=== PATIENT | female | born 1930 | race Caucasian/White ===

== ENCOUNTER 2018-12-18 08:18 | Observation (INO) | payer MEDICARE, MEDICAID ==
[2018-12-16 09:27] LABS: BASOPHILS % (AUTO) 0.4 % (0-1); HEMATOCRIT 41.1 % (35.0-45.0); HEMOGLOBIN 13.8 g/dl (12.0-16.0); LYMPHOCYTES # (AUTO) 1.2 X10'3 (1.1-4.8); LYMPHOCYTES % (AUTO) 23.9 % (21-51); MEAN CORPUSCULAR HEMOGLOBIN 31.8 PG (27.0-31.0); MEAN CORPUSCULAR HGB CONC 33.7 g/dL (33.0-36.5); MEAN CORPUSCULAR VOLUME 94.4 FL (78-98); MEAN PLATELET VOLUME 8.6 FL (7.4-10.4); MONOCYTES # (AUTO) 0.6 X10'3 (0-0.9); MONOCYTES % (AUTO) 11.4 % (2-12); NEUTROPHILS # (AUTO) 3.1 X10'3 (1.8-7.7); NEUTROPHILS % (AUTO) 63.3 % (42-75); PLATELET COUNT 169 X10'3 (140-440); RED BLOOD COUNT 4.35 X10'6 (4.20-5.60); RED CELL DISTRIBUTION WIDTH 13.9 % (11.5-14.5); WHITE BLOOD COUNT 4.9 X10'3 (4.5-11.0)
[2018-12-16 09:37] LABS: PARTIAL THROMBOPLASTIN TIME 27 SECONDS (22-32)
[2018-12-16 09:42] LABS: ALANINE AMINOTRANSFERASE 18 U/L (12-78); ALBUMIN 3.3 G/DL (3.4-5.0); ALKALINE PHOSPHATASE 66 IU/L (46-116); ANION GAP 6 (8-16); ASPARTATE AMINO TRANSFERASE 16 U/L (10-37); BILIRUBIN,TOTAL 0.9 MG/DL (0.1-1.0); BLOOD UREA NITROGEN 20 MG/DL (7-18); BUN/CREATININE RATIO 26.3 (6.6-38.0); CALCIUM 8.1 MG/DL (8.5-10.1); CHLORIDE 109 MMOL/L (99-107); CREATININE 0.76 MG/DL (0.40-0.90); GLUCOSE 86 MG/DL (70-104); POTASSIUM 3.9 MMOL/L (3.5-5.1); SODIUM 145 MMOL/L (135-145); TOTAL PROTEIN 6.7 G/DL (6.4-8.2); eGFR 72 ML/MIN
[2018-12-18] VITALS (17 sets, daily range): BP systolic 105–167; BP diastolic 63–94
[~2018-12-18] VITALS: Ht 172.7 cm; Wt 140.0 kg
[2018-12-18] MEDS ORDERED: nitroGLYCERIN 0.4mg SUBLingual tab SL PRN ×2 (08:50→12:20)
[2018-12-18] MEDS ORDERED: ASCO500C15 PO (08:54)
[2018-12-18] MEDS ORDERED: APIX2.5T PO (08:54)
[2018-12-18] MEDS ORDERED: COD1CAPS15 (08:54)
[2018-12-18] MEDS ORDERED: LEVO150T61 PO (08:54)
[2018-12-18] MEDS ORDERED: diphenhydrAMINE 25mg capsule PO PRN (08:55)
[2018-12-18] MEDS ORDERED: LORazepam 0.5 MG tablet PO PRN (08:55)
[2018-12-18] MEDS: normal saline 1,000 ML IV SCH ×2 (09:30→18:55)
[2018-12-18] MEDS ORDERED: iohexol 350 MG/ML 50ML vial IV ONE ×2 (10:19→11:19)
[2018-12-18] MEDS ORDERED: iohexol 350MG/ML 100ml bottle IV ONE (10:19)
[2018-12-18] MEDS ORDERED: midazolam 2 mg/2 ml injection ONE (10:19)
[2018-12-18] MEDS ORDERED: fentaNYL/PF 50MCG/1 ML 2ML syringe ONE (10:19)
[2018-12-18] MEDS ORDERED: LIDOcaine 1% 30ml preserv. free vial ONE (10:19)
[2018-12-18] MEDS ORDERED: proCHLORperazine 10 MG/2 ml inj IV PRN (12:20)
[2018-12-18] MEDS ORDERED: HYDROcodone/acetaminophen 10/325mg tab PO PRN (12:20)
[2018-12-18] MEDS ORDERED: normal saline 1000ml 1,000 ML IV SCH (12:20)
[2018-12-18] MEDS ORDERED: HYDROcodone/acetaminophen 5mg/325mg tablet PO PRN ×2 (12:20→18:10)
[2018-12-18] MEDS ORDERED: OXAZEpam 15mg capsule PO PRN (12:20)
[2018-12-18] MEDS ORDERED: ondansetron/PF 4mg/2ml inj IV PRN ×2 (12:20→18:10)
[2018-12-18] MEDS ORDERED: magnesium 4gm in 100ml NS 100 ML IV PRN (18:10)
[2018-12-18] MEDS ORDERED: acetaminophen 325mg tablet PO PRN ×2 (18:10)
[2018-12-18] MEDS ORDERED: potassium CL 10mEq/100ml bag 100 ML IV PRN ×2 (18:10)
[2018-12-18] MEDS ORDERED: potassium Cl 20 mEq SR tablet PO PRN ×2 (18:10)
[2018-12-18] MEDS ORDERED: mag hydrox/Alum hydrox/simeth 30ml oral suspension PO PRN (18:10)
[2018-12-18] MEDS ORDERED: hydrALAZINE 20mg/ml inj. IV PRN (18:10)
[2018-12-18] MEDS ORDERED: magnesium 2GM in 50ml NS 50 ML IV PRN (18:10)
[2018-12-18] MEDS ORDERED: magnesium Cl slow-release 64mg tablet PO PRN (18:10)
[2018-12-18] MEDS ORDERED: docusate sod 100mg capsule PO PRN (18:10)
--- NOTE | 2018-12-18 18:50 | NUR ---
Problems reprioritized. Patient report given, questions answered & plan of care reviewed with LEE Hayward.
--- NOTE | 2018-12-18 19:40 | NUR ---
Patient in room 3027b. I have received report from LEE Yee from Short Stay and had the opportunity to ask questions and assume patient care. Patient awake for bedside report and stable at this time. at bedside. 20 G right AC with NS infusing per provider order. Placed on alarm security or surveillance monitor #[id number]. [place] to right groin. Will continue to monitor closely.
[2018-12-18 22:12] LABS: BASOPHILS % (AUTO) 0.5 % (0-1); EOSINOPHILS % (AUTO) 0.1 % (0-6); HEMATOCRIT 36.4 % (35.0-45.0); HEMOGLOBIN 12.3 g/dl (12.0-16.0); LYMPHOCYTES # (AUTO) 0.9 X10'3 (1.1-4.8); LYMPHOCYTES % (AUTO) 13.4 % (21-51); MEAN CORPUSCULAR HEMOGLOBIN 31.5 PG (27.0-31.0); MEAN CORPUSCULAR HGB CONC 33.7 g/dL (33.0-36.5); MEAN CORPUSCULAR VOLUME 93.4 FL (78-98); MEAN PLATELET VOLUME 8.4 FL (7.4-10.4); MONOCYTES # (AUTO) 0.6 X10'3 (0-0.9); MONOCYTES % (AUTO) 8.5 % (2-12); NEUTROPHILS # (AUTO) 5.3 X10'3 (1.8-7.7); NEUTROPHILS % (AUTO) 77.5 % (42-75); PLATELET COUNT 162 X10'3 (140-440); RED CELL DISTRIBUTION WIDTH 13.8 % (11.5-14.5); WHITE BLOOD COUNT 6.8 X10'3 (4.5-11.0)
[2018-12-19 02:00] VITALS: BP 144/75
[2018-12-19] MEDS: normal saline 1,000 ML IV SCH ×2 (04:55→05:53)
[2018-12-19 05:59] LABS: BASOPHILS % (AUTO) 0.1 % (0-1); EOSINOPHILS % (AUTO) 0 % (0-6); HEMATOCRIT 32.9 % (35.0-45.0); HEMOGLOBIN 11.2 g/dl (12.0-16.0); LYMPHOCYTES # (AUTO) 0.8 X10'3 (1.1-4.8); LYMPHOCYTES % (AUTO) 10.3 % (21-51); MEAN CORPUSCULAR HEMOGLOBIN 32.2 PG (27.0-31.0); MEAN CORPUSCULAR HGB CONC 34.2 g/dL (33.0-36.5); MEAN CORPUSCULAR VOLUME 94.1 FL (78-98); MEAN PLATELET VOLUME 9.4 FL (7.4-10.4); MONOCYTES # (AUTO) 0.5 X10'3 (0-0.9); MONOCYTES % (AUTO) 6.2 % (2-12); NEUTROPHILS # (AUTO) 6.5 X10'3 (1.8-7.7); NEUTROPHILS % (AUTO) 83.4 % (42-75); PLATELET COUNT 108 X10'3 (140-440); RED CELL DISTRIBUTION WIDTH 13.7 % (11.5-14.5); WHITE BLOOD COUNT 7.8 X10'3 (4.5-11.0)
[2018-12-19 06:00] VITALS: BP 116/60
--- NOTE | 2018-12-19 06:00 | NUR ---
rECEIVED REPORT FROM darrin Reddy PT IS IN BED ASLEEP nad
--- NOTE | 2018-12-19 06:18 | NUR ---
Problems reprioritized. Patient report given, questions answered & plan of care reviewed with LEE Yee.
[2018-12-19 06:29] LABS: ALANINE AMINOTRANSFERASE 13 U/L (12-78); ALBUMIN 2.7 G/DL (3.4-5.0); ALBUMIN/GLOBULIN RATIO 0.9 (1.1-1.5); ALKALINE PHOSPHATASE 54 IU/L (46-116); ANION GAP 9 (8-16); ASPARTATE AMINO TRANSFERASE 19 U/L (10-37); BILIRUBIN,TOTAL 1.3 MG/DL (0.1-1.0); BLOOD UREA NITROGEN 12 MG/DL (7-18); BUN/CREATININE RATIO 17.9 (6.6-38.0); CALCIUM 7.6 MG/DL (8.5-10.1); CHLORIDE 108 MMOL/L (99-107); CREATININE 0.67 MG/DL (0.40-0.90); GLUCOSE 98 MG/DL (70-104); MAGNESIUM 1.9 MG/DL (1.5-2.4); POTASSIUM 3.7 MMOL/L (3.5-5.1); SODIUM 140 MMOL/L (135-145); TOTAL CARBON DIOXIDE 22.6 MMOL/L (24-32); TOTAL PROTEIN 5.7 G/DL (6.4-8.2); eGFR 83 ML/MIN
[2018-12-19] MEDS ORDERED: levoTHYROXINE 75mcg tablet PO SCH (07:00)
--- NOTE | 2018-12-19 07:00 | NUR ---
Pt awoke confused. She decanulated PIV of RFA. Bleeding was controlled without difficulty
[2018-12-19] MEDS ORDERED: K and/or MAG REPLACEMENT MC SCH (08:00)
[2018-12-19] MEDS ORDERED: apixaban 2.5mg tablet PO SCH (08:00)
[2018-12-19] MEDS ORDERED: ascorbic acid 500mg tablet PO SCH (08:00)
[2018-12-19 11:00] VITALS: BP 149/63
--- NOTE | 2018-12-19 12:46 | NUR ---
Ivonne Enamorado RM [id number] US report is available
[2018-12-19] MEDS ORDERED: APIX2.5T PO (12:53)
== END 2018-12-19 13:40 | disposition home or self-care (01) ==
LOC: SSTAY O 08:18 → PCU 3S 20:12
PROVIDERS: ADMIT Family Medicine; ATTEND Internal Medicine Cardiovascular Disease
DX: I72.8 Aneurysm of other specified arteries (principal); E03.2 Hypothyroidism due to medicaments and other exogenous substances; E89.0 Postprocedural hypothyroidism; I10 Essential (primary) hypertension; Z79.890 Hormone replacement therapy; G92 Toxic encephalopathy; E04.9 Nontoxic goiter, unspecified; F09 Unspecified mental disorder due to known physiological condition; Z79.01 Long term (current) use of anticoagulants; Z86.718 Personal history of other venous thrombosis and embolism; Z87.891 Personal history of nicotine dependence
CPT/HCPCS: 36415; 71046; 80053; 83735; 85025; 85610; 85730; 87081; 93005; 93458; 93926; C1760; C1769; G0378; J1644; J2001; J2250; J3010; J7030; Q0163; Q9967; 99152; 99153; A4620; A6258

== ENCOUNTER 2018-12-21 18:20 | Emergency (ER) | payer MEDICARE, MEDICAID ==
[~2018-12-21] VITALS: Ht 172.7 cm; Wt 63.6 kg
[~2018-12-21 18:20] MED LIST: APIX2.5T PO; ASCO500C15 PO; COD1CAPS15; LEVO150T61 PO
[2018-12-21 18:31] VITALS: BP 195/89
--- NOTE | 2018-12-21 19:35 | NUR ---
PT HAS BRUISING TO HER RIGHT INNER THIGH THAT HER SAID DOUBLED IN SIZE JUST TODAY. PT TOOK HER ELIQUIS LAST NIGHT
== END 2018-12-21 20:30 | disposition home or self-care (01) ==
LOC: ER 18:21
DX: I97.630 Postprocedural hematoma of a circulatory system organ or structure following a cardiac catheterization (principal); I25.10 Atherosclerotic heart disease of native coronary artery without angina pectoris; M19.90 Unspecified osteoarthritis, unspecified site; Z86.718 Personal history of other venous thrombosis and embolism; Z98.61 Coronary angioplasty status; Z98.890 Other specified postprocedural states; Z79.899 Other long term (current) drug therapy
CPT/HCPCS: 99284